=== PATIENT | female | born 1950 | race Caucasian/White ===

== ENCOUNTER 2019-11-12 09:03 | Day surgery (SDC) | payer MEDICARE, OTHER ==
[~2019-11-12] VITALS: Ht 162.6 cm; Wt 50.7 kg
[2019-11-12] MEDS ORDERED: albumin 25% 100mL bottle x 1 IV PRN (09:20)
[2019-11-12 09:45] VITALS: BP 154/84
[2019-11-12 10:10] VITALS: BP 142/72
[2019-11-12 10:20] VITALS: BP 139/76
[2019-11-12 10:30] VITALS: BP 147/85
[2019-11-12 10:45] VITALS: BP 138/76
[2019-11-12 11:00] VITALS: BP 136/74
[2019-11-12 12:35] LABS: GLUCOSE,BODY FLUID 104 MG/DL; LDH,BODY FLUID 320 U/L; TOTAL PROTEIN,BODY FLUID 4.1 G/DL
[2019-11-12 12:39] LABS: LYMPHOCYTES,BODY FLUID 78 %; MONOCYTES,BODY FLUID 19 %; NEUTROPHILS,BODY FLUID 3 %
[2019-11-12 12:43] LABS: BF RBC COUNT 12550 /CU MM; BF WBC COUNT 585 /CU MM (0-1000); BFAPPEAR CLOUDY; BFCOLOR RED; BFVOLUME 59 ML
[2019-11-12] MEDS ORDERED: RIVA20TA PO (18:38)
[2019-11-12] MEDS ORDERED: LOSA25TA96 PO (18:38)
[2019-11-12] MEDS ORDERED: ASCO-321 PO (18:38)
[2019-11-12] MEDS ORDERED: METO-477 PO (18:38)
[2019-11-12] MEDS ORDERED: MULT-1141 PO (18:38)
[2019-11-12] MEDS ORDERED: UBID100C16 PO (18:38)
[2019-11-12] MEDS ORDERED: [UNRECOGNIZED DRUG - OTHER] PO (18:38)
[2019-11-12] MEDS ORDERED: VITAMIN D3 PO (18:38)
[2019-11-12] MEDS ORDERED: FLAX100010 PO (18:38)
[2019-11-12] MEDS ORDERED: OMEG-133 PO (18:38)
[2019-11-12] MEDS ORDERED: ALBU18HF2 INH (18:39)
== END 2019-11-12 11:15 | disposition home or self-care (01) ==
LOC: SSTAY O 09:03
PROVIDERS: ATTEND Radiology Vascular & Interventional Radiology
DX: J90 Pleural effusion, not elsewhere classified (principal); C34.12 Malignant neoplasm of upper lobe, left bronchus or lung; C34.11 Malignant neoplasm of upper lobe, right bronchus or lung; I10 Essential (primary) hypertension; Z98.890 Other specified postprocedural states; Z79.899 Other long term (current) drug therapy
CPT/HCPCS: 32555; 71045; 82945; 83615; 84157; 87070; 89051